=== PATIENT | male | born 1945 | race Caucasian/White ===

== ENCOUNTER 2018-09-30 07:28 | Inpatient (IN) | payer MEDICARE, OTHER ==
[~2018-09-30] VITALS: Ht 175.3 cm; Wt 79.5 kg
[2018-09-30 00:15] VITALS: BP 153/86
--- NOTE | 2018-09-30 07:30 | NUR ---
SEEN AND EXAMINED BY DR. QIU.
--- NOTE | 2018-09-30 07:34 | NUR ---
PT TASHA MARTINEZ 89 From Home "family called they noticed him sleepy at breakfast he may have taken 4-5 pills of ambien accidentally thinking regular meds" PT IS ASLEEP WITHDRAWS TO STIMULI, NOT IN RESPIRATORY DISTRESS, V/S STABLE, HOOKED TO MONITOR, KEPT RESTED AND COMFORTABLE, WILL CONTINUE TO MONITOR.
--- NOTE | 2018-09-30 07:35 | NUR ---
LABS DRAWNED AND SENT TO LAB.
[2018-09-30] MEDS ORDERED: IV NS 0.9% 500 ML BAG IV ONE (08:00)
--- NOTE | 2018-09-30 08:00 | NUR ---
URINE SPECIMEN COLLECTED VIA [facility]IO CATH AND SENT TO LAB.
[2018-09-30] MEDS ORDERED: ROPI1TAB4 PO (08:08)
[2018-09-30] MEDS ORDERED: ZOLP10TA6 PO (08:08)
[2018-09-30] MEDS ORDERED: CARB1TAB40 PO (08:08)
[2018-09-30] MEDS ORDERED: ERGO500040 PO (08:08)
[2018-09-30] MEDS ORDERED: CYAN10006 IM (08:08)
[2018-09-30 08:12] LABS: CALCIUM, SERUM 9.3 mg/dL (8.5-10.1); CARBON DIOXIDE 30 mmol/L (21-32); CHLORIDE 104 mmol/L (98-107); CREATININE 1.2 mg/dL (0.6-1.3); GLUCOSE 83 mg/dL (74-106); POTASSIUM 4.2 mmol/L (3.5-5.1); SODIUM SERUM 142 mmol/L (136-145); UREA NITROGEN, BLOOD 20 mg/dL (7-18)
[2018-09-30 08:18] LABS: ALANINE AMINOTRANSFERASE 16 U/L (12-78); ALBUMIN 3.9 g/dL (3.4-5.0); ALKALINE PHOSPHATASE 49 U/L (46-116); ASPARTATE AMINOTRANSFERASE 18 U/L (15-37); BILIRUBIN,DIRECT 0.2 mg/dL (0.0-0.2); BILIRUBIN,TOTAL 0.6 mg/dL (0.2-1.0); TOTAL PROTEIN, SERUM 6.9 g/dL (6.4-8.2)
[2018-09-30 08:19] LABS: BASOPHILS % (AUTO) 0.1 % (0.0-2.0); EOSINOPHILS % (AUTO) 3.1 % (0.0-6.0); HEMATOCRIT 39 % (39-51); HEMOGLOBIN 13.4 g/dL (13.5-17.5); LYMPHOCYTES # (AUTO) 1.5 /CMM (0.8-4.8); LYMPHOCYTES % (AUTO) 32.5 % (20.0-44.0); MEAN CORPUSCULAR HGB CONC 34 g/dl (31.0-36.0); MEAN CORPUSCULAR VOLUME 91 fL (80-96); MONOCYTES # (AUTO) 0.4 /CMM (0.1-1.30); MONOCYTES % (AUTO) 8.5 % (2.0-12.0); NEUTROPHILS # (AUTO) 2.5 /CMM (1.8-8.9); NEUTROPHILS % (AUTO) 55.8 % (43.0-81.0); PLATELET COUNT (AUTO) 223 /CMM (150-450); RED BLOOD CELL COUNT(AUTO) 4.32 MIL/uL (4.5-6.0); WHITE BLOOD COUNT (AUTO) 4.5 K/uL (4.3-11.0)
[2018-09-30 08:23] LABS: APPEARANCE,URINE CLEAR (CLEAR); BILIRUBIN,URINE NEGATIVE (NEGATIVE); BLOOD, URINE 2+ Ery/uL (NEGATIVE); COLOR,URINE YELLOW (YELLOW); KETONES,URINE NEGATIVE (NEGATIVE); LEUKOCYTE ESTERASE ,URINE NEGATIVE (NEGATIVE); NITRITE, URINE NEGATIVE (NEGATIVE); PH,URINE 7.5 (5.0-8.0); PROTEIN,URINE TRACE mg/dl (NEGATIVE); UGLUCOSE NEGATIVE (NEGATIVE); UROBILINOGEN,URINE 0.2 EU/dL (0.2)
--- NOTE | 2018-09-30 08:27 | NUR ---
PRINTING ROLLER HANDLER AT BEDSIDE FOR XRAY.
[2018-09-30 08:41] LABS: BACTERIA,URINE Rare /HPF (None Seen); RBC,URINE 21-50 /HPF (0-2); SQUAMOUS EPITHELIAL CELL,UR Rare /HPF (None Seen); WBC,URINE 0-2 /HPF (0-3)
--- NOTE | 2018-09-30 08:42 | NUR ---
PT IS WHEELED TO CT SCAN VIA [facility].
--- NOTE | 2018-09-30 09:00 | NUR ---
PT IS BACK FROM THE CT SCAN.
[2018-09-30] MEDS ORDERED: SELE5CAP PO (09:22)
--- NOTE | 2018-09-30 09:25 | NUR ---
REPORT GIVEN TO DESEAN MORRIS FOR [facility].
[2018-09-30] MEDS ORDERED: MAG HYDROX/AL HYDROX/SIMETH 30 ML UDC PO PRN (09:30)
[2018-09-30] MEDS ORDERED: HYDROCODONE/APAP 5/325MG 1 EACH TABLET PO PRN (09:30)
[2018-09-30] MEDS ORDERED: Z GUARD REMEDY 2 OZ OINT TP PRN (09:30)
[2018-09-30] MEDS ORDERED: ONDANSETRON HCL/PF 4 MG/2 ML VIAL IVP PRN (09:30)
[2018-09-30] MEDS ORDERED: MAGNESIUM HYDROXIDE 30 ML UDC PO PRN (09:30)
[2018-09-30] MEDS ORDERED: ZOLPIDEM TARTRATE 5 MG TABLET PO PRN (09:30)
[2018-09-30] MEDS ORDERED: ACETAMINOPHEN 325 MG TABLET PO PRN (09:30)
[2018-09-30 10:00] VITALS: BP 155/91
--- NOTE | 2018-09-30 10:00 | NUR ---
TELE/RN NOTE THE PATIENT IS RECEIVED ON A GURNEY. ASSISTED TO BED. ALERT AND ORIENTED X2, DROWSY. IN ROOM AIR AND DENIES SOB. RESPIRATION REGULAR AND UNLABORED. DENIES PAIN. LEFT FA G18 PATENT AND SALINE LOCKED. ORIENTED THE PATIENT TO ROOM/UNIT. BED LOW AND LOCKED. SIDE RAILS UP X3. CALL LIGHT WITHIN REACH.
[2018-09-30] MEDS: IV NS 0.9% 1,000 ML IV PRN (13:33)
[2018-09-30 14:08] VITALS: BP 155/91
[2018-09-30 16:00] VITALS: BP 151/81
--- NOTE | 2018-09-30 17:23 | NUR ---
GAS METER REPAIR SUPERVISOR NOTES RECEIVED ORDER FROM DR. GALLEGOS TO DISCONTINUE MARIO CATHETER AND A NEW ORDER OF REGULAR DIET. NOTED AND CARRIED OUT.
[2018-09-30 17:30] VITALS: BP 151/81
--- NOTE | 2018-09-30 18:39 | NUR ---
TELE/RN CLOSING NOTES PATIENT IS AWAKE IN BED. ALERT AND ORIENTED X 4. NO SIGNS OF RESPIRATORY DISTRESS. DENIES SHORTNESS OF BREATH. RESPIRATIONS REGULAR AND UNLABORED. DENIES PAIN AT THIS TIME. LEFT FOREARM G# 18 PATENT AND SALINE LOCKED. TELE READING 68 SINUS RHYTHM. SAFETY PRECAUTIONS IN PLACE. BED LOW AND LOCKED. SIDERAILS UP X2. CALL LIGHT WITHIN REACH. WILL ENDORSE TO ONCOMING SHIFT.
--- NOTE | 2018-09-30 19:40 | NUR ---
MACHINE EDGE BANDER NOTE: PATIENT RESTING IN BED, NO ACUTE DISTRESS NOTED. BREATHING EVEN AND UNLABORED, NO SOB NOTED. IV TO LFA IN PLACE. BED LOCKED AND IN LOWEST POSITION, CALL LIGHT IN REACH. WILL CONTINUE TO MONITOR.
[2018-09-30 21:08] VITALS: BP 134/73
[2018-10-01 04:00] VITALS: BP 153/86
[2018-10-01 06:11] LABS: BASOPHILS % (AUTO) 0.1 % (0.0-2.0); EOSINOPHILS % (AUTO) 1.4 % (0.0-6.0); HEMATOCRIT 39 % (39-51); HEMOGLOBIN 13.4 g/dL (13.5-17.5); LYMPHOCYTES # (AUTO) 1.4 /CMM (0.8-4.8); LYMPHOCYTES % (AUTO) 24.4 % (20.0-44.0); MEAN CORPUSCULAR HGB CONC 34 g/dl (31.0-36.0); MEAN CORPUSCULAR VOLUME 91 fL (80-96); MONOCYTES # (AUTO) 0.4 /CMM (0.1-1.30); MONOCYTES % (AUTO) 7.7 % (2.0-12.0); NEUTROPHILS # (AUTO) 3.7 /CMM (1.8-8.9); NEUTROPHILS % (AUTO) 66.4 % (43.0-81.0); PLATELET COUNT (AUTO) 234 /CMM (150-450); RED BLOOD CELL COUNT(AUTO) 4.33 MIL/uL (4.5-6.0); WHITE BLOOD COUNT (AUTO) 5.6 K/uL (4.3-11.0)
--- NOTE | 2018-10-01 06:20 | NUR ---
FISH TECHNOLOGIST NOTE: PATIENT RESTING IN BED, NO ACUTE DISTRESS NOTED. BREATHING EVEN AND UNLABORED, NO SOB NOTED. IV TO LFA IN PLACE. BED LOCKED AND IN LOWEST POSITION, CALL LIGHT IN REACH. WILL ENDORSE TO DAY NURSE TO CONTINUE WITH PLAN OF CARE.
[2018-10-01 06:34] LABS: CALCIUM, SERUM 9.2 mg/dL (8.5-10.1); CARBON DIOXIDE 29 mmol/L (21-32); CHLORIDE 105 mmol/L (98-107); CREATININE 1.3 mg/dL (0.6-1.3); GLUCOSE 85 mg/dL (74-106); MAGNESIUM 2.1 mg/dL (1.8-2.4); SODIUM SERUM 143 mmol/L (136-145); UREA NITROGEN, BLOOD 17 mg/dL (7-18)
[2018-10-01 06:40] LABS: CHOLESTEROL 188 mg/dL (<200); HDL CHOLESTEROL 56 mg/dL (40-60); LDL 126 mg/dL (0-99); TRIGLYCERIDES 46 mg/dL (30-150)
[2018-10-01] MEDS: IV NS 0.9% 1,000 ML IV PRN (07:01)
[2018-10-01 08:00] VITALS: BP 157/79
--- NOTE | 2018-10-01 08:00 | NUR ---
Rn notes received patient in the room, a/o x3/4. patient stable has no acute respiratory distress. Tele monitor on SR- 76. v/s taken stable, patient refused pain at this time. Iv access on left fa intact infusing ns at 75 ml/hr. patient using walker, high fall risk. patient using bathroom. call light within to reach. safety precaution maintained all the time.
[2018-10-01] MEDS ORDERED: CARBIDOPA/LEV CR 50/200 MG 1 UDTAB.SA PO SCH (09:00)
[2018-10-01] MEDS ORDERED: ZOLPIDEM TARTRATE 10 MG TABLET PO PRN (09:00)
--- NOTE | 2018-10-01 09:00 | NUR ---
Rn notes d/c tele to med/surge by dr Dobbins.
--- NOTE | 2018-10-01 10:00 | NUR ---
RN notes Patient removed his iv access, and notes he is going to be discharge home . patient refused iv inserted back. notified dr. Reyes .
[2018-10-01] MEDS: ropiniROLE 0.5 MG TABLET PO SCH ×2 (10:26→12:02)
[2018-10-01] MEDS ORDERED: AMLODIPINE BESYLATE 5 MG TABLET PO SCH (12:00)
[2018-10-01] MEDS ORDERED: SELEGILINE HCL 5 MG CAPSULE PO SCH (12:00)
--- NOTE | 2018-10-01 12:00 | NUR ---
rn notes patient going to d/c home, patient will follow primary md. scheduled medication administered. called and notified , will pickling operator patient in the lobby.
[2018-10-01 16:00] VITALS: BP 106/66
--- NOTE | 2018-10-01 16:10 | NUR ---
DISCHARGE NOTES PATIENT DISCHARGE AT THIS TIME GOING HOME. PATIENT STABLE, REFUSED PAIN. MED RECONCILIATION AND DISCHARGE ORDER REVIEWED AND EXPLAINED TO PATIENT AND . PATIENT VERBALIZED UNDERSTANDING. BELONGING WITH THE PATIENT. PATIENT WILL FOLLOW PRIMARY MD. ESCORTED PATIENT TO THE LOBBY FOR SAFETY. PATIENT TALENT SOURCING SPECIALIST BY NAME NATACHA PHONE #[phone].
[2018-10-05] MEDS ORDERED: ERGOCALCIFEROL (VITAMIN D 2) 50,000 UNIT CAPSULE PO SCH
[2018-10-05] MEDS ORDERED: CYANOCOBALAMIN 1,000 MCG/ML VIAL IM SCH (09:00)
== END 2018-10-01 16:15 | disposition home or self-care (01) | DRG 917 ==
LOC: ER 07:31 → TELE 09:27 → MED 10-01 08:57
PROVIDERS: ADMIT Internal Medicine; ATTEND Internal Medicine
DX: T42.6X1A Poisoning by other antiepileptic and sedative-hypnotic drugs, accidental (unintentional), initial encounter (principal); G92 Toxic encephalopathy; Y92.009 Unspecified place in unspecified non-institutional (private) residence as the place of occurrence of the external cause; G20 Parkinson's disease; Z79.899 Other long term (current) drug therapy; I10 Essential (primary) hypertension
CPT/HCPCS: 36415; 70450-TC; 71045-TC; 80048-TC; 80061-TC; 80076-TC; 80305; 81000-TC; 83605-TC; 83735-TC; 84100-TC; 84484-TC; 85025-TC; 85730-TC; 87040-TC; 87081-TC; 87086-TC; G0378; G0480; J7030; J7040